=== PATIENT | male | born 1950 | race Caucasian/White ===

== ENCOUNTER 2022-05-19 14:30 | Outpatient (CLI) | payer MEDICARE, OTHER | END 2022-05-19 14:31 | disposition home or self-care (01) | LOC: LAB.S 14:30 | PROVIDERS: ATTEND Specialist | DX: C61 Malignant neoplasm of prostate (principal) | CPT/HCPCS: 36415; 84403 ==

== ENCOUNTER 2022-06-03 10:50 | Outpatient (CLI) | payer MEDICARE, OTHER ==
[2022-06-03 15:17] LABS: BASOPHILS # (AUTO) 0.1 10^3/uL (0.0-0.1); BASOPHILS % (AUTO) 0.8 %; EOSINOPHILS # (AUTO) 0.1 10^3/uL (0.0-0.7); EOSINOPHILS % (AUTO) 1.8 %; HCT - HEMATOCRIT 35.3 % (42.0-52.0); HGB - HEMOGLOBIN 10.8 g/dL (14.0-18.0); LYMPHOCYTES # (AUTO) 1.4 10^3/uL (1.5-3.5); LYMPHOCYTES % (AUTO) 22.7 %; MEAN CORPUSCULAR HEMOGLOBIN 28.6 pg (27.0-31.0); MEAN CORPUSCULAR HGB CONC 30.6 g/dL (32.0-36.0); MEAN CORPUSCULAR VOLUME 93.4 fL (80.0-94.0); MEAN PLATELET VOLUME 10.8 fL (7.4-11.4); MONOCYTES # (AUTO) 0.6 10^3/uL (0.0-1.0); NEUTROPHILS % (AUTO) 65.5 %; PLT - PLATELET COUNT 343 10^3/uL (130-450); RED BLOOD COUNT 3.78 10^6/uL (4.70-6.10); RED CELL DISTRIBUTION WIDTH 17.8 % (12.0-15.0); WHITE BLOOD COUNT 6.1 x10^3/uL (4.8-10.8)
[2022-06-03 15:27] LABS: ALBUMIN 3.8 g/dL (3.2-5.5); ALBUMIN/GLOBULIN RATIO 1.2 (1.0-2.2); BILIRUBIN,TOTAL 0.5 mg/dL (0.2-1.0); CALCIUM 9.6 mg/dL (8.5-10.3); CREATININE 1.2 mg/dL (0.6-1.2); TOTAL PROTEIN 6.9 g/dL (6.7-8.2)
== END 2022-06-03 10:51 | disposition home or self-care (01) ==
LOC: LAB.S 10:50
PROVIDERS: ATTEND Specialist
DX: C61 Malignant neoplasm of prostate (principal)
CPT/HCPCS: 36415; 80053; 84153; 84403; 85025

== ENCOUNTER 2022-07-15 08:00 | Outpatient (CLI) | payer MEDICARE, OTHER ==
[2022-07-15 13:47] LABS: BASOPHILS # (AUTO) 0.1 10^3/uL (0.0-0.1); BASOPHILS % (AUTO) 0.9 %; EOSINOPHILS # (AUTO) 0.1 10^3/uL (0.0-0.7); EOSINOPHILS % (AUTO) 2.4 %; HCT - HEMATOCRIT 36.2 % (42.0-52.0); MEAN CORPUSCULAR HEMOGLOBIN 27.1 pg (27.0-31.0); MEAN CORPUSCULAR HGB CONC 30.4 g/dL (32.0-36.0); MEAN CORPUSCULAR VOLUME 89.2 fL (80.0-94.0); MEAN PLATELET VOLUME 10.1 fL (7.4-11.4); MONOCYTES # (AUTO) 0.5 10^3/uL (0.0-1.0); MONOCYTES % (AUTO) 9.6 %; NEUTROPHILS # (AUTO) 3.6 10^3/uL (1.5-6.6); NEUTROPHILS % (AUTO) 67.9 %; PLT - PLATELET COUNT 282 10^3/uL (130-450); RED BLOOD COUNT 4.06 10^6/uL (4.70-6.10); RED CELL DISTRIBUTION WIDTH 16.4 % (12.0-15.0); WHITE BLOOD COUNT 5.3 x10^3/uL (4.8-10.8)
[2022-07-15 14:05] LABS: ALBUMIN 3.8 g/dL (3.2-5.5); ALBUMIN/GLOBULIN RATIO 1.1 (1.0-2.2); BILIRUBIN,TOTAL 0.5 mg/dL (0.2-1.0); CALCIUM 9.6 mg/dL (8.5-10.3); CREATININE 1.1 mg/dL (0.6-1.2); TOTAL PROTEIN 7.2 g/dL (6.7-8.2)
== END 2022-07-15 23:59 | disposition home or self-care (01) ==
LOC: LAB.R 08:00
PROVIDERS: ATTEND Specialist
DX: C61 Malignant neoplasm of prostate (principal)
CPT/HCPCS: 80053; 84153; 84403; 85025

== ENCOUNTER 2022-11-02 07:01 | Emergency (ER) | payer MEDICARE, OTHER ==
--- NOTE | 2022-11-02 07:12 | ED Physician Documentation ---
PD HPI CHEST PAIN - Stated complaint Stated Complaint: RIB PX - History obtained from History obtained from: Patient - History of Present Illness Timing - onset: How many months ago (2) Timing - onset during: Exertion (he states the onset of the pain there was while he was shoveling and he hit a rock with shovel tip, and caused a jarring of the chest, with pain right parasternal. This continued to some degree since. More hurting the past 2 weeks. No rash/redness. No creptitance/deformity to feel. Pain with movemen) Timing - details: Abrupt onset, Still present, Waxing and waning Quality: Aching, Sharp, Pain Location: Right chest (immediately parasternal at mid sternal level.) Radiation: No: Neck, Back Improved by: Rest Worsened by: Movement, Palpation. No: Inspiration Associated symptoms: No: Shortness of air, Nausea, Feeling faint / dizzy, Cough Similar symptoms before: Has not had sx before Review of Systems Constitutional: denies: Fever, Chills Nose: denies: Rhinorrhea / runny nose, Congestion Throat: denies: Sore throat Cardiac: reports: Chest pain / pressure. denies: Palpitations, Pedal edema, Calf pain Respiratory: denies: Cough Skin: denies: Rash, Lesions PD PAST MEDICAL HISTORY - Past Medical History Cardiovascular: Hypertension, High cholesterol Respiratory: Sleep apnea Neuro: None Endocrine/Autoimmune: None GI: None : Other (PROSTATE CANCER) HEENT: Chronic vision loss, Other Psych: Anxiety Musculoskeletal: Osteoarthritis, Other (HIP DJD) Derm: None - Past Surgical History Ortho: Other (LOWER LEFT LEG ORIF) - Present Medications Home Medications: Ambulatory Orders Medication Instructions Recorded Confirmed Ascorbic Acid [Vitamin C] 1,000 mg PO DAILY 12/10/21 07/06/22 Atorvastatin Calcium 40 mg PO DAILY 12/10/21 07/06/22 Cholecalciferol [Vitamin D3] 25 mcg PO DAILY 12/10/21 07/06/22 Multivitamin 1 each PO DAILY 12/10/21 07/06/22 [place]-3/Dha/Epa/Fish Oil [Fish Oil 1 each PO DAILY 12/10/21 07/06/22 1,000 mg Softgel] atenoloL [Tenormin] 50 mg PO DAILY 12/10/21 07/06/22 hydroCHLOROthiazide [Hydrodiuril] 25 mg PO DAILY 12/10/21 07/06/22 Lidocaine/Prilocain 2.5% Cream 5 applic TOP UD #1 gm 12/15/21 07/06/22 [Emla 2.5% Cream] Calcium Carbonate [Calcium] 03/16/22 Abiraterone Acetate 250 mg PO DAILY 05/15/22 07/06/22 Meloxicam [Mobic] 7.5 mg PO BID 10 Days #20 tablet 11/02/22 - Allergies Allergies/Adverse Reactions: Allergies Allergy/AdvReac Type Severity Reaction Status Date / Time No Known Drug Allergies Allergy Verified 11/02/22 07:23 - Social History Smoking Status: Former smoker (QUIT 2006; 1 + 1/2 PPD) PD ED PE NORMAL - Vitals Vital signs reviewed: Yes - General General: Alert and oriented X 3, No acute distress, Well developed/nourished - HEENT HEENT: Pharynx benign - Neck Neck: Supple, no meningeal sign, No adenopathy - Cardiac Cardiac: RRR, No murmur - Respiratory Respiratory: Clear bilaterally, Other (chest wall tender in right parasternal area at cartilage. No redness nor sores/rash. no crepitance. ) Results - Vitals Vitals: Vital Signs - 24 hr 11/02/22 11/02/22 07:20 10:16 Temperature 36.3 C L 36.4 C L Heart Rate 59 L 60 Respiratory 20 20 Rate Blood Pressure 132/105 H 132/89 H O2 Saturation 98 98 Oxygen O2 Source Room air - Rads (name of study) chest CT Relevant Findings:: Prelim report reviewed (no abnormalitiy in the area of the sternum to account for the pain. Multiple lung parenchymal nodules up to 3-3.5 mm size. ), See rad report PD Medical Decision Making - ED course Complexity details: reviewed results (CT chest shows normal in the area that is hurting. There are multiple small up to 3-3.5 mm nodules that could be inflammatory, infectious or early metastatic. ), considered differential (consider muscle strain pectoral vs costochonritis, but with his history of prostate CA, the concern for bone met or lung mass in area would be warranted and evaluated. ), d/w patient Reviewed Lab Results: the CT shows multiple small dense nodules that are very small. The patient is getting a PET scan for in a few weeks by his Oncologist, so will better define the lesions I presume. I convveyed the findings with rita nbd gave a copy of the CT report. for the chest wall pain, presume muscle tendonitis/strain versus more likely some focal costochondritis. To use NSAIDs regularly and add tylenol. He did not want any opioid type meds. Departure - Departure Disposition: 01 Home, Self Care Clinical Impression: Chest wall pain, Costochondritis, acute, Multiple lung nodules on CT Condition: Stable Record reviewed to determine appropriate education?: Yes Instructions: ED Chest Pain Costochondritis Prescriptions: Meloxicam [Mobic] 7.5 mg PO BID 10 Days #20 tablet Comments: Your CT scan does not show any abnormalities in the area that you are hurting. This means no obvious fractures, dislocation, bone lesions or masses in that spot. They do comment on several small nodules with largest approximately 3 to 3-1/2 mm (fairly small). These will be better evaluated with your PET scan coming up this month. The pain in the chest wall would seem to relate to some inflammation of the cartilage or muscle at that spot. We can try treating this with an anti- inflammatory regularly for the next 7 to 10 days. I wrote for some meloxicam which is a twice a day only anti-inflammatory. To that add Tylenol 500 to 650 mg 4 times daily to help with pain. Follow-up with your primary care if not improved well over the next several days and resolved by week. I sent your prescription to [facility] pharmacy. Discharge Date/Time: 11/02/22 10:16
[2022-11-02] MEDS ORDERED: ACETAMINOPHEN 325 MG TABLET PO STA (07:44)
[2022-11-02] MEDS ORDERED: NAPROXEN 250 MG TABLET PO STA (07:44)
--- NOTE | 2022-11-02 08:45 | CT Report ---
PROCEDURE: CHEST WO INDICATIONS: right parasternal pain, onset shoveling TECHNIQUE: Noncontrast 1mm axial images were acquired from the pulmonary apices to the posterior costophrenic an gles. Axial 5 mm soft tissue kernel reconstructions were performed as well as 8 mm axial MIP and cor onal and sagittal 5 mm reformations. For radiation dose reduction, the following was used: automate d exposure control, adjustment of mA and/or kV according to patient size. COMPARISON: None FINDINGS: Image quality: Excellent. Lungs and pleura: No consolidation. No pleural effusions. No pneumothorax. Moderate centrilobular an d paraseptal emphysema. Scattered solid pulmonary nodules, measuring no greater than 5 mm. Examples i nclude: -3 mm solid nodule, anterior right lower lobe (series 4, image 185). -3.5 mm solid nodule, right lung apex (series 4, image 59) Mediastinum: Heart size is enlarged. No pericardial effusion. No large vessel abnormality. No mediast inal adenopathy by size criteria. Annular calcification of mitral valve. Three-vessel coronary calci fications. Left chest wall port tip terminates in the high right atrium. Chest wall and lower neck: Thyroid is unremarkable. No axillary or supraclavicular adenopathy by size . Bilateral gynecomastia. Bones: A few punctate dense lesions within the spine, nonspecific. Upper Abdomen: Unremarkable. IMPRESSION: No acute findings explaining the patient's parasternal pain. 2 vessel coronary disease, moderate to severe for age. Scattered solid pulmonary nodules, which could be postinfectious/inflammatory or indicate metastatic disease. Reviewed by: Martin Dillon on 11/02/2022 8:44 AM PDT Approved by: Martin Dillon on 11/02/2022 8:44 AM PDT Station ID: [id number]
[2022-11-02 10:19] VITALS: BP 132/89
== END 2022-11-02 10:16 | disposition home or self-care (01) ==
LOC: ED 07:01
DX: M94.0 Chondrocostal junction syndrome [Tietze] (principal); R07.89 Other chest pain; R91.8 Other nonspecific abnormal finding of lung field; Z87.891 Personal history of nicotine dependence; I10 Essential (primary) hypertension; E78.00 Pure hypercholesterolemia, unspecified; Z79.899 Other long term (current) drug therapy
CPT/HCPCS: 71250; 99284; A9270

== ENCOUNTER 2022-11-26 12:57 | Outpatient (CLI) | payer MEDICARE, OTHER ==
[2022-11-26 13:05] LABS: BASOPHILS % (AUTO) 0.6 %; EOSINOPHILS # (AUTO) 0.1 10^3/uL (0.0-0.7); EOSINOPHILS % (AUTO) 1.6 %; HCT - HEMATOCRIT 32.2 % (42.0-52.0); HGB - HEMOGLOBIN 10.5 g/dL (14.0-18.0); LYMPHOCYTES # (AUTO) 0.8 10^3/uL (1.5-3.5); LYMPHOCYTES % (AUTO) 15.2 %; MEAN CORPUSCULAR HEMOGLOBIN 29.1 pg (27.0-31.0); MEAN CORPUSCULAR HGB CONC 32.6 g/dL (32.0-36.0); MEAN CORPUSCULAR VOLUME 89.2 fL (80.0-94.0); MEAN PLATELET VOLUME 9.6 fL (7.4-11.4); MONOCYTES # (AUTO) 0.6 10^3/uL (0.0-1.0); MONOCYTES % (AUTO) 10.9 %; NEUTROPHILS # (AUTO) 3.6 10^3/uL (1.5-6.6); NEUTROPHILS % (AUTO) 71.5 %; PLT - PLATELET COUNT 282 10^3/uL (130-450); RED BLOOD COUNT 3.61 10^6/uL (4.70-6.10); RED CELL DISTRIBUTION WIDTH 14.8 % (12.0-15.0); WHITE BLOOD COUNT 5.1 x10^3/uL (4.8-10.8)
[2022-11-26 13:22] LABS: ALBUMIN 4.4 g/dL (3.2-5.5); ALBUMIN/GLOBULIN RATIO 1.5 (1.0-2.2); BILIRUBIN,TOTAL 0.3 mg/dL (0.2-1.0); CALCIUM 10.1 mg/dL (8.5-10.3); CREATININE 1.3 mg/dL (0.6-1.3); TOTAL PROTEIN 7.3 g/dL (6.4-8.9)
== END 2022-11-26 12:58 | disposition home or self-care (01) ==
LOC: LAB 12:57
PROVIDERS: ATTEND Specialist
DX: C61 Malignant neoplasm of prostate (principal)
CPT/HCPCS: 36415; 80053; 84153; 84403; 85025

== ENCOUNTER 2023-02-08 12:29 | Outpatient (CLI) | payer MEDICARE, OTHER | END 2023-02-08 23:59 | disposition short-term general hospital (02) | LOC: EMS 12:29 | DX: R20.0 Anesthesia of skin (principal); R53.1 Weakness; Z74.09 Other reduced mobility | CPT/HCPCS: A0425; A0427 ==

== ENCOUNTER 2023-02-10 12:15 | Inpatient (IN) | payer MEDICARE, OTHER ==
[2023-02-10] MEDS ORDERED: ATROPINE 0.4 MG/ML VIAL IVP PRN (13:13)
[2023-02-10] MEDS ORDERED: ACETAMINOPHEN 325 MG TABLET PO PRN (13:13)
[2023-02-10] MEDS ORDERED: CARBOXYMETHYLCELLULOSE OPHTH DROPS EACHEYE PRN (13:13)
[2023-02-10] MEDS ORDERED: LORazepam 2 MG/ML VIAL IVP PRN (13:13)
[2023-02-10] MEDS ORDERED: PETROLATUM WHITE 5 GM PACKET TOP PRN (13:13)
[2023-02-10] MEDS: MORPHINE 2 MG/ML CARPUJECT IVP PRN ×2 (17:34→20:28)
[2023-02-10] MEDS: DEXAMETHASONE 4 MG/ML VIAL IVP SCH ×2 (17:34→23:52)
--- NOTE | 2023-02-10 19:38 | HISTORY & PHYSICAL EXAMINATION ---
History and Physical - History and Physical 73 yo male w/metastatic prostate cancer, dx'd in 2016. He was found to have bone mets in 11/22 (Rib, Rt T8, femur). He underwent XRT. He admitted to hospice on 01/27/23 as he did not want to pursue further systemic therapy. He notes he has been doing very well overall despite the extent of his disease process. He notes his pain has been fairly well controlled. He has been ambulatory and was out in his shop as recently as 3 days ago.. He'd been having some pain in his legs, but it was manageable. He also had been having some back pain, but it was improved w/current interventions (methadone, dexamethasone). He woke up around 2 am on 02/08/23 and took a shower. He notes he was okay at that time. However, later in the morning he noted weakness in the legs as well as onset of numbness. He denied any falls. He noted that he felt "numb" from just below the nipple line down. He could identify pressure but not sensation. He stated he could move his Lt leg, but not his right. He had not urinated since 0200 and did not feel any urge to urinate. On exam, he had a T 5/6 dermatome level acute paralysis. He was hyperreflexic. RN placed a chavira w/1400 cc urine output. Pt elected to revoke hospice and pursue further diagnostics (and possible intervention). He transferred to [facility] for further evaluation. He was admitted, placed on IV steroids and ultimately underwent MRI on 02/09/23 which revealed "tumor wrapped around the spinal cord" at C5 and it was felt there was no intervention available for him. After admission to the hospital, he did develop ascending paresis which impacted his RUE and has caused some difficulty w/deep breathing. Today, the Palliative Care team contacted Hospice re: readmission and GIP level of care for mgmt of his IV pain medication needs. The PC MD reported to me that he was needing frequent IV morphine for comfort. Currently, pt c/o neuropathic pain primarily impacting his RUE. He also notes if he moves his head too far, he develops neuropathic sxs extending down Bilateral medial thighs. He continues to note some difficulty w/taking a deep breath and notes that attempting to take a deep breath increases the neuropathic pain in his RUE. He has not had a BM in 3 days. PMH: Metastatic prostate cancer BPH HTN CKD3 NITISH osteopenia depression/anxiety former smoker Soc Hx: Former smoker. Former alcohol use (6 pack/day). Lives in [place], [place] w/ and son. Exam: T 36.3, HR 44 RR 16 BP 104/33 O2 sat 99% RA; pain rated 10/10 on admission Gen- very pleasant elderly male, Alert and oriented x 3, appears uncomfortable when moving his RUE HEENT - NC, face symmetric, PERRLA, EOMI, sclera anicteric, conjunctiva pale but clear, OP clear, fair dentition Chest -Resp excursions symmetric, CTAB CV - bradycardic w/RR, no M/R/G Abd-soft, NT/ND, BTx4, no obvious masses/HSM Extr-warm, no C/C/E, no sensation to BLEs Skin-warm, dry, no rash Neuro- absent sensation/movement to BLEs, able to move LUE w/o difficulty, RUE w/decreased function and sensation Assessment: 1. Acute spinal cord compression d/t C5 lesion 2. Metastatic prostate cancer 3. Bradycardia 4. Urinary retention 5. Constipation Pt w/acute onset of paralysis on 02/08/23, found to be d/t spinal cord compression from metastasis to C5. He is having severe neuropathic pain, some respiratory symptoms and autonomic instability w/bradycardia and hypotension (reported at Prov). Additionally, he has urinary retention and constipation consistent w/paralysis. Will admit to [facility] level of care. Place on : dexamethasone 4 mg IV q6 IV morphine PRN Titrate gabapentin Add baclofen and d/c flexeril Add daily suppository - may need digital stim if ineffective Continue methadone Pt is appropriate for GIP level of care for monitoring of sxs related to cord compression, mgmt of 10/10 pain, and need for both IV steroids and IV morphine. These interventions could not be accomplished at a lower level of care. Code status: DNR/DNI
[2023-02-10] MEDS: GABAPENTIN 300 MG CAPSULE PO SCH ×2 (20:28→23:53)
[2023-02-10] MEDS: MIRTAZAPINE 15 MG TABLET PO SCH (22:27)
[2023-02-10] MEDS: METHADONE 5 MG TABLET PO SCH (22:27)
[2023-02-10] MEDS: BACLOFEN 10 MG TABLET PO SCH (22:28)
[2023-02-11] MEDS: BACLOFEN 10 MG TABLET PO SCH ×3 (06:10→22:13)
[2023-02-11] MEDS: PANTOPRAZOLE 40 MG TABLET PO SCH (06:10)
[2023-02-11] MEDS: GABAPENTIN 300 MG CAPSULE PO SCH ×3 (06:12→22:14)
[2023-02-11] MEDS: METHADONE 5 MG TABLET PO SCH ×3 (06:12→22:14)
[2023-02-11] MEDS: DEXAMETHASONE 4 MG/ML VIAL IVP SCH ×3 (06:12→17:12)
[2023-02-11] MEDS: MORPHINE 2 MG/ML CARPUJECT IVP PRN ×10 (06:20→22:12)
[2023-02-11] MEDS: polyethylene glycoL 3350 17 GM PACKET PO SCH (08:22)
[2023-02-11] MEDS: MIN OIL/DIMETHICON/COCONUT OIL 92 GM TUBE TOP PRN ×3 (08:23→22:12)
[2023-02-11] MEDS: BISACODYL 10 MG SUPP PR SCH (08:23)
--- NOTE | 2023-02-11 11:39 | PROVIDER PROGRESS NOTE ---
Progress Note 73 yo male w/metastatic prostate cancer w/C5 spinal cord compression causing acute ascending paralysis. S: Pt reports he slept for about 4 hours overnight. His pain increased and woke him at 6am. He notes his pain was 8/10 this am prior to receiving IV meds. Now it is down to 4/10 w/intervention. He received a suppository this am, but has not had a BM yet. Some persistent respiratory difficulty when trying to take a full breath. O: Gen-A&Ox3, pleasant middle aged male HEENT - NC, face symmetric Chest - CTAB CV - bradycardic w/RR, no M/R/G Abd-soft, NT, ND, BT hypoactive Extr- warm, No C/C/E Neuro - decreased dexterity w/RUE but still moving it fairly well, no involvement to LUE, flaccid paralysis to BLEs A: 1. Acute spinal cord compression d/t C5 lesion 2. Metastatic prostate cancer 3. Bradycardia 4. Urinary retention 5. Constipation P: Continue IV morphine PRN, scheduled IV dexamethasone, baclofen, methadone, gabapentin both scheduled and PRN He appears slightly more bradycardic this am than yesterday. Will monitor. Continue chavira catheter. RNCM checked rectal vault while we visited and noted soft stool starting to come out of the rectum. Hospice ASSOCIATE MANAGER AFFILIATE MARKETING working on post-GIP resources as well. Discussed a visit from Director Of Channel Marketing-pt declined. Discussed likely course of disease progression to include respiratory failure and progressive paralysis of the BUEs. Explained that we will titrate medications to control dyspnea, anxiety, pain. Continue GIP level of care for management of severe pain and need for both scheduled and PRN IV medications.
[2023-02-11] MEDS: LORazepam 2 MG/ML VIAL IVP SCH ×2 (16:00→22:12)
[2023-02-11] MEDS: GABAPENTIN 300 MG CAPSULE PO PRN ×2 (16:01→20:03)
[2023-02-11] MEDS: MIRTAZAPINE 15 MG TABLET PO SCH (22:14)
[2023-02-12] MEDS: DEXAMETHASONE 4 MG/ML VIAL IVP SCH ×5 (06:27→23:55)
[2023-02-12] MEDS: BACLOFEN 10 MG TABLET PO SCH ×3 (06:36→21:10)
[2023-02-12] MEDS: LORazepam 2 MG/ML VIAL IVP SCH ×3 (06:36→21:12)
[2023-02-12] MEDS: PANTOPRAZOLE 40 MG TABLET PO SCH (06:37)
[2023-02-12] MEDS: GABAPENTIN 300 MG CAPSULE PO SCH ×3 (06:37→21:12)
[2023-02-12] MEDS: METHADONE 5 MG TABLET PO SCH ×3 (06:37→21:10)
[2023-02-12] MEDS: MORPHINE 2 MG/ML CARPUJECT IVP PRN ×3 (07:33→11:19)
[2023-02-12] MEDS: polyethylene glycoL 3350 17 GM PACKET PO SCH (08:11)
[2023-02-12] MEDS: BISACODYL 10 MG SUPP PR SCH (08:31)
[2023-02-12] MEDS: GABAPENTIN 300 MG CAPSULE PO PRN (17:12)
--- NOTE | 2023-02-12 18:42 | PROVIDER PROGRESS NOTE ---
Progress Note 73 yo male w/metastatic prostate cancer w/C5 spinal cord compression causing acute ascending paralysis. S: Pt reports he slept for about 4 hours again overnight, but feels his sleep quality was improved. He feels he is better able to take a deep breath w/o pain in his arm, but has required frequent IV pain medication (received 20 mg IV in 24 hours). He was successfully able to have multiple BMs yesterday. Earlier today, he notes he choked on food. He had pumpkin bread that his dtr brought. He notes it got stuck and he couldn't cough it out. RN came and he required deep suctioning to remove the food bolus. He notes his cough has become extremely weak. He notes his RUE is more "clumsy" than it was yesterday. Dtr notes that he has very little dexterity in his right hand. He denies any decrease in function in his LUE, but notes "a spot" that is starting to feel abnormal around his elbow, which is where his sxs started on his RUE. Pain was rated 7-8/10 for most of the past 24 hrs. O: Gen-A&Ox3, pleasant middle aged male HEENT - NC, face symmetric Chest - CTAB CV - bradycardic w/RR, no M/R/G Abd-soft, NT, ND, BT hypoactive Extr- warm, No C/C/E Neuro - decreased overall movement and dexterity to RUE, he is using his LUE to move the RUE during my visit, flaccid paralysis to BLEs A: 1. Acute spinal cord compression d/t C5 lesion 2. Metastatic prostate cancer 3. Bradycardia 4. NEW dysphagia 5. Urinary retention 6. Constipation - resolved P: Continue IV morphine PRN, scheduled IV dexamethasone, baclofen, methadone, gabapentin both scheduled and PRN. Will increase methadone by 5 mg/day to work on improving overall pain control. He remains bradycardic, about the same as yesterday. He has developed new dysphagia today, requiring urgent RN suctioning. Continue chavira catheter for urinary retention. Constipation resolved w/use of dulcolax suppository. Hospice TOPOGRAPHICAL DRAFTER working on post-GIP resources. Pt aware of likelycourse of disease progression to include respiratory failure and progressive paralysis of the BUEs. Continue GIP level of care for management of uncontrolled pain and need for both scheduled and PRN IV medications, as well as new onset dysphagia w/inability to clear his obstruction.
[2023-02-12] MEDS: MIRTAZAPINE 15 MG TABLET PO SCH (21:12)
[2023-02-13] MEDS: BACLOFEN 10 MG TABLET PO SCH ×3 (06:07→21:09)
[2023-02-13] MEDS: DEXAMETHASONE 4 MG/ML VIAL IVP SCH ×4 (06:08→23:35)
[2023-02-13] MEDS: LORazepam 2 MG/ML VIAL IVP SCH ×3 (06:08→21:10)
[2023-02-13] MEDS: PANTOPRAZOLE 40 MG TABLET PO SCH (06:08)
[2023-02-13] MEDS: GABAPENTIN 300 MG CAPSULE PO SCH ×3 (06:09→21:09)
[2023-02-13] MEDS: MORPHINE 2 MG/ML CARPUJECT IVP PRN ×2 (07:47→11:01)
[2023-02-13] MEDS: polyethylene glycoL 3350 17 GM PACKET PO SCH (09:10)
[2023-02-13] MEDS: METHADONE 5 MG TABLET PO SCH ×3 (09:10→21:09)
[2023-02-13] MEDS: BISACODYL 10 MG SUPP PR SCH (09:11)
[2023-02-13] MEDS: GABAPENTIN 300 MG CAPSULE PO PRN ×2 (11:00→16:12)
[2023-02-13] MEDS: MIRTAZAPINE 15 MG TABLET PO SCH (21:09)
--- NOTE | 2023-02-13 21:48 | PROVIDER PROGRESS NOTE ---
Progress Note 73 yo male w/metastatic prostate cancer w/C5 spinal cord compression causing acute ascending paralysis. S: Over the past 24 hours, pt notes he has continued to have RUE neuropathic pain. He notes that he feels he has had some benefit from the increased dose of the methadone as well as the extra doses of gabapentin. He continues to struggle to sleep. No aspiration event since yesterday. He notes he did have to use the [place] 2 times yesterday. Son in law notes that at times the pt's speech has been slurred. He notes that when he first arrived in the pt's room, he seemed a bit out of it and he was worried the pt had a CVA. O: Gen-A&Ox3, pleasant middle aged male HEENT - NC, face symmetric Chest - CTAB CV - bradycardic w/RR, no M/R/G Abd-soft, NT, ND, BT hypoactive Extr- warm, No C/C/E Neuro - poor control of the RUE, he is using his LUE to move the RUE during my visit, flaccid paralysis to BLEs A: 1. Acute spinal cord compression d/t C5 lesion 2. Metastatic prostate cancer 3. Bradycardia 4. Dysphagia 5. Urinary retention 6. Constipation - resolved P: Continue IV morphine PRN, scheduled IV dexamethasone, baclofen, methadone, gabapentin both scheduled and PRN. Methadone increased yesterday to 7.5/5/7.5 w/some improvement. He remains bradycardic, about the same as yesterday. No further dysphagia since yesterday but new cognitive changes noted today per family. Continue chavira catheter for urinary retention. Constipation resolved w/use of dulcolax suppository. Hospice DANCE PROFESSOR working on post-GIP resources. Pt aware of likely course of disease progression to include respiratory failure and progressive paralysis of the BUEs. Continue GIP level of care for management of uncontrolled pain and need for both scheduled and PRN IV medications. Will also continue to monitor for new neuro changes given subtle changes in his speech noted today by family.
[2023-02-14] MEDS: GABAPENTIN 300 MG CAPSULE PO SCH ×3 (05:57→21:15)
[2023-02-14] MEDS: PANTOPRAZOLE 40 MG TABLET PO SCH (05:57)
[2023-02-14] MEDS: BACLOFEN 10 MG TABLET PO SCH ×3 (05:57→21:15)
[2023-02-14] MEDS: DEXAMETHASONE 4 MG/ML VIAL IVP SCH ×3 (05:58→19:36)
[2023-02-14] MEDS: LORazepam 2 MG/ML VIAL IVP SCH ×3 (06:04→21:16)
[2023-02-14] MEDS: polyethylene glycoL 3350 17 GM PACKET PO SCH (08:53)
[2023-02-14] MEDS: BISACODYL 10 MG SUPP PR SCH (08:53)
[2023-02-14] MEDS: MORPHINE 2 MG/ML CARPUJECT IVP PRN ×3 (08:53→12:22)
[2023-02-14] MEDS: METHADONE 5 MG TABLET PO SCH ×3 (08:54→21:16)
[2023-02-14] MEDS: GABAPENTIN 300 MG CAPSULE PO PRN (11:04)
--- NOTE | 2023-02-14 15:21 | PROVIDER PROGRESS NOTE ---
Progress Note 73 yo male w/metastatic prostate cancer w/C5 spinal cord compression causing acute ascending paralysis. S: Over the past 24 hours, pt notes he has continued to have RUE neuropathic pain and typically rates it as 6-8/10. So far today, he has needed 3 PRN IV doses of morphine and 1 of PRN IV lorazepam. He is using an ice pack for neck pain. He has routinely needed both doses of PRN gabapentin as well. No further aspiration. He does seem a bit more confused today, having a hard time tracking conversation. He believed the bilingual patient support caseworker has 4-5 children (he has known since admission that she doesn't have any children). He also made a couple of strange conversation transitions that were difficult to follow. He reports poor sleep. O: Gen-A&Ox2-3, pleasant middle aged male HEENT - NC, face symmetric Chest - CTAB CV - mildly bradycardic w/RR, no M/R/G Abd-soft, NT, ND, BT hypoactive Extr- warm, No C/C/E Neuro - poor control of the RUE,with his arm frequently flopping clumsily when he moves it, flaccid paralysis to BLEs A: 1. Acute spinal cord compression d/t C5 lesion 2. Metastatic prostate cancer 3. Bradycardia 4. Dysphagia - no recurrence 5. Urinary retention 6. Confusion P: Continue IV morphine PRN, scheduled IV dexamethasone, baclofen, methadone, gabapentin both scheduled and PRN. Will increase gabapentin to 600/300/600. Methadone increased 02/12/23 to 7.5/5/7.5. Bradycardia is mild at this point. Asymptomatic. No further dysphagia since 02/12. Continue chavira catheter for urinary retention. He is demonstrating some confusion today. Will monitor. Hospice WING MAILER MACHINE OPERATOR working on post-GIP resources. Pt aware of likely course of disease progression to include respiratory failure and progressive paralysis of the BUEs. Continue GIP level of care for management of uncontrolled pain and need for both scheduled and PRN IV medications.
[2023-02-14] MEDS: MIRTAZAPINE 15 MG TABLET PO SCH (21:14)
[2023-02-15] MEDS: DEXAMETHASONE 4 MG/ML VIAL IVP SCH ×4 (00:40→22:24)
[2023-02-15] MEDS: MORPHINE 2 MG/ML CARPUJECT IVP PRN ×2 (00:50→09:53)
[2023-02-15] MEDS: BACLOFEN 10 MG TABLET PO SCH ×3 (06:45→22:12)
[2023-02-15] MEDS: PANTOPRAZOLE 40 MG TABLET PO SCH (06:46)
[2023-02-15] MEDS: LORazepam 2 MG/ML VIAL IVP SCH (06:47)
[2023-02-15] MEDS: BISACODYL 10 MG SUPP PR SCH (09:52)
[2023-02-15] MEDS: GABAPENTIN 300 MG CAPSULE PO SCH ×3 (09:52→20:51)
[2023-02-15] MEDS: polyethylene glycoL 3350 17 GM PACKET PO SCH (09:52)
[2023-02-15] MEDS: METHADONE 5 MG TABLET PO SCH ×3 (10:40→22:12)
--- NOTE | 2023-02-15 12:15 | PROVIDER PROGRESS NOTE ---
Progress Note 73 yo male w/metastatic prostate cancer w/C5 spinal cord compression causing acute ascending paralysis. S: Over the past 24 hours, pt notes he has continued to have RUE neuropathic pain which has been as high as 02/09 this am. He has needed 10 mg of IV morphine since yesterday am (only 2 doses since my visit yesterday afternoon). No PRN gabapentin since increasing the scheduled dose yesterday. He continues to have some confusion - mentioned graffiti on the brick wall outside of his hospital room (which isn't there) and was observed shaking pepper onto his pineapple on his lunch tray. He slept well last night. No family at bedside. O: Gen-A&Ox2-3, pleasant middle aged male HEENT - NC, face symmetric Chest - CTAB CV - mildly bradycardic w/RR, no M/R/G Abd-soft, NT, ND, BT hypoactive Extr- warm, No C/C/E Neuro - poor control of the RUE,with his arm frequently flopping clumsily when he moves it, flaccid paralysis to BLEs A: 1. Acute spinal cord compression d/t C5 lesion 2. Metastatic prostate cancer 3. Bradycardia 4. Dysphagia - no recurrence 5. Urinary retention 6. Confusion P: Continue IV morphine PRN. Will increase methadone to 7.5 mg TID today. Will reduce IV dex from 4 mg q6 to 4 mg q8. Plan to transition to po dex tomorrow. Will d/c IV scheduled lorazepam and give it po. Bradycardia remains mild and asymptomatic. No dysphagia since 02/12. Continue chavira catheter for urinary retention. He continues to have confusion, which is likely multifactorial from medications and disease process. Hospice CONTINUITY READER working on disposition. Pt states he would like to go home, rather than to an off-island SNF. Pt aware of likely course of disease progression to include respiratory failure and progressive paralysis of the BUEs. Will transition to C LOC as pt has only needed 2 doses of PRN IV morphine since my visit yesterday and sxs appear to be well managed.
[2023-02-15] MEDS ORDERED: LORazepam 0.5 MG TABLET PO PRN (13:50)
[2023-02-15] MEDS ORDERED: MORPHINE SOL 10 MG/0.5 ML ORAL SYRINGE PO PRN (13:51)
[2023-02-15] MEDS ORDERED: MORPHINE 2 MG/ML CARPUJECT IVP PRN (13:52)
[2023-02-15] MEDS: LORazepam 0.5 MG TABLET PO SCH ×2 (14:09→22:11)
[2023-02-15] MEDS: MIRTAZAPINE 15 MG TABLET PO SCH (20:52)
[2023-02-15] MEDS: MIN OIL/DIMETHICON/COCONUT OIL 92 GM TUBE TOP PRN (22:25)
[2023-02-16] MEDS: BACLOFEN 10 MG TABLET PO SCH ×2 (06:43→14:22)
[2023-02-16] MEDS: LORazepam 0.5 MG TABLET PO SCH ×2 (06:44→14:20)
[2023-02-16] MEDS: METHADONE 5 MG TABLET PO SCH ×2 (06:48→14:21)
[2023-02-16] MEDS: PANTOPRAZOLE 40 MG TABLET PO SCH (06:49)
[2023-02-16] MEDS: dexAMETHasone 4 MG TABLET PO SCH ×2 (06:50→14:21)
[2023-02-16 07:58] VITALS: BP 126/67; O2SAT 96
[2023-02-16] MEDS: polyethylene glycoL 3350 17 GM PACKET PO SCH (08:42)
[2023-02-16] MEDS: BISACODYL 10 MG SUPP PR SCH (08:42)
[2023-02-16] MEDS: GABAPENTIN 300 MG CAPSULE PO SCH ×2 (08:42→14:21)
--- NOTE | 2023-02-16 11:16 | PROVIDER PROGRESS NOTE ---
Progress Note 73 yo male w/metastatic prostate cancer w/C5 spinal cord compression causing acute ascending paralysis. S: Pt is in good spirits today. He received IV morphine this am prior to a bedbath. He notes he slept about 4 hours overnight. He does c/o increased neuropathic pain in his LUE (was just at the elbow, now down the forearm). Breathing well controlled. Dtr notes that he was somewhat confused this am, stating she had polka dots on her face. O: Gen-A&Ox2-3, pleasant middle aged male HEENT - NC, face symmetric Chest - CTAB CV - RRR, no M/R/G Abd-soft, NT, ND, BT hypoactive Extr- warm, No C/C/E Neuro - poor control of the RUE,with his arm frequently flopping clumsily when he moves it, flaccid paralysis to BLEs A: 1. Acute spinal cord compression d/t C5 lesion 2. Metastatic prostate cancer 3. Bradycardia 4. Dysphagia - no recurrence 5. Urinary retention 6. Confusion P: Tolerating med changes from yesterday. continues methadone 7.5 mg po TID, dex po 4 mg TID, baclofen 5 mg TID, lorazepam 0.5 mg TID. Had one po dose of PRN morphine yesterday and one IV dose today. Continue chavira catheter. Pt had a BM this am. Pt has been accepted to [facility] today for assisted care.
--- NOTE | 2023-02-16 11:18 | Discharge Plan ---
"Discharge Plan for SNF / [facility] - Discharge Plan And Transition Orders Problem Reviewed?: Yes Disposition: 03 SNF DC/Xfer Condition: Fair Allergies and Adverse Reactions: Allergies Allergy/AdvReac Type Severity Reaction Status Date / Time No Known Drug Allergies Allergy Verified 11/02/22 07:23 - SNF / [facility] Transition Orders Admit to (Facility): [facility] Under the care of (Name): Dr. [facility] Discharge Diagnosis: 1. 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 Weight on admission and: Weekly Other Notification Orders: Call PCP immediately if patient develops dyspnea, chest pain/tightness or edema. House Bowel Program: Yes Additional Bowel Program Orders: If no BM after 2 days, nurse may give M.O.M. 30ml PO PRN and/or ducolax Supp 1 TN and/or BECKY 250mg P.O., and/or senna 1-2 tabs PO. On day 3 nurse may give repeat above order until residents constipation is resolved. Annual Influenza Vaccine (between Jan 01 and July 31): Yes Two-step PPD per [facility] [id number] or approved exception documents: Yes Treatments & Other Orders: Reposition q3 hours Oxygen Orders: N/A Medication Orders: PLEASE REFER TO THE DISCHARGE MEDICATION LIST. - Diet Texture: Regular Liquids: Thin Supplements: N/A - Therapies | Activity Activity: Bed bound d/t paralysis"
--- NOTE | 2023-02-16 11:19 | DISCHARGE SUMMARY ---
Discharge Summary Admit Date: 02/10/23 Discharge Date: 02/16/23 Discharging Provider: Skyler Code Status: Do Not Attempt Resuscitation Condition at Discharge: Fair Discharge Disposition: 03 SNF DC/Xfer Discharge [facility]: [facility] - DIAGNOSES Admission Diagnoses: 1. Acute spinal cord compression d/t C5 lesion 2. Metastatic prostate cancer 3. Bradycardia 4. Urinary retention 5. Constipation Discharge Diagnoses with Status of Each Condition: 1. Acute spinal cord compression d/t C5 lesion,unchanged 2. Metastatic prostate cancer, unchanged 3. Bradycardia, improved 4. Urinary retention, stable, s/p chavira catheter 5. Constipation, improved 6. Dysphagia - single episode, resolved 7. Confusion-mild, persistent - HPI History of Present Illness: 73 yo male w/metastatic prostate cancer, dx'd in 2016. He was found to have bone mets in 11/22 (Rib, Rt T8, femur). He underwent XRT. He admitted to hospice on 01/27/23 as he did not want to pursue further systemic therapy. He notes he has been doing very well overall despite the extent of his disease process. He notes his pain has been fairly well controlled. He has been ambulatory and was out in his shop as recently as 3 days ago.. He'd been having some pain in his legs, but it was manageable. He also had been having some back pain, but it was improved w/current interventions (methadone, dexamethasone). He woke up around 2 am on 02/08/23 and took a shower. He notes he was okay at that time. However, later in the morning he noted weakness in the legs as well as onset of numbness. He denied any falls. He noted that he felt "numb" from just below the nipple line down. He could identify pressure but not sensation. He stated he could move his Lt leg, but not his right. He had not urinated since 0200 and did not feel any urge to urinate. On exam, he had a T 5/6 dermatome level acute paralysis. He was hyperreflexic. RN placed a chavira w/1400 cc urine output. Pt elected to revoke hospice and pursue further diagnostics (and possible intervention). He transferred to [facility] for further evaluation. He was admitted, placed on IV steroids and ultimately underwent MRI on 02/09/23 which revealed "tumor wrapped around the spinal cord" at C5 and it was felt there was no intervention available for him. After admission to the hospital, he did develop ascending paresis which impacted his RUE and has caused some difficulty w/deep breathing. Today, the Palliative Care team contacted [facility] re: readmission and [facility] level of care for mgmt of his IV pain medication needs. The PC MD reported to me that he was needing frequent IV morphine for comfort. Currently, pt c/o neuropathic pain primarily impacting his RUE. He also notes if he moves his head too far, he develops neuropathic sxs extending down Bilateral medial thighs. He continues to note some difficulty w/taking a deep breath and notes that attempting to take a deep breath increases the neuropathic pain in his RUE. He has not had a BM in 3 days. - HOSPITAL COURSE Hospital Course: Pt was admitted to hospice [facility] level of care for management of pain and acute ascending paralysis d/t tumor expansion at C5 and throughout the spinal column. He was placed on IV steroids, IV morphine, IV lorazepam as well as po methadone, gabapentin, baclofen and bowel regimen. Over the course of his hospital stay, his pain medications were titrated up w/good effect. He was transitioned to [facility] level of care on 02/15/23. He was accepted to [facility] for half-way care on 02/16/23. Pt is discharged in fair condition. His prognosis is likely at most 2-3 weeks. - ALLERGIES Allergies/Adverse Reactions: Allergies Allergy/AdvReac Type Severity Reaction Status Date / Time No Known Drug Allergies Allergy Verified 11/02/22 07:23 - MEDICATIONS Home Medications: Ambulatory Orders Medication Instructions Recorded Confirmed Senna [Senokot] 8.6 mg PO BID 02/11/23 02/11/23 Acetaminophen [Tylenol] 650 mg PO Q4HR PRN tab 02/16/23 Baclofen [Lioresal] 5 mg PO TID tab 02/16/23 Gabapentin [Neurontin] 300 mg PO 1400 cap 02/16/23 Gabapentin [Neurontin] 600 mg PO BID cap 02/16/23 LORazepam [Ativan] 0.5 mg PO TID tab 02/16/23 Methadone [Methadone Hcl] 7.5 mg PO TID tab 02/16/23 Min Oil/Dimeth/Coconut Oil Crm 1 applic TOP PRN PRN each 02/16/23 [Cavilon] Mirtazapine [Remeron] 15 mg PO QPM tab 02/16/23 Morphine Oral Soln [Roxanol] 5 mg PO Q1H PRN ml 02/16/23 Pantoprazole [Protonix] 40 mg PO QDAC tab 02/16/23 dexAMETHasone [Decadron] 4 mg PO TID tab 02/16/23 polyethylene glycoL 3350 [Miralax] 17 gm PO DAILY packet 02/16/23 - PHYSICAL EXAM AT DISCHARGE Physical Exam Other/Comments: See progress note from today - TIME SPENT Time Spent in Discharge (Minutes): 50
== END 2023-02-16 14:45 | DRG 948 ==
LOC: MS2 16:10
PROVIDERS: ADMIT Family Medicine; ATTEND Family Medicine
DX: G89.3 Neoplasm related pain (acute) (chronic) (principal); C79.51 Secondary malignant neoplasm of bone; G95.29 Other cord compression; C61 Malignant neoplasm of prostate; R33.8 Other retention of urine; N40.1 Benign prostatic hyperplasia with lower urinary tract symptoms; R00.1 Bradycardia, unspecified; R13.10 Dysphagia, unspecified; R41.0 Disorientation, unspecified; G83.89 Other specified paralytic syndromes; I12.9 Hypertensive chronic kidney disease with stage 1 through stage 4 chronic kidney disease, or unspecified chronic kidney disease; N18.30 Chronic kidney disease, stage 3 unspecified; G47.33 Obstructive sleep apnea (adult) (pediatric); M85.88 Other specified disorders of bone density and structure, other site; F32.A Depression, unspecified; F41.9 Anxiety disorder, unspecified; Z87.891 Personal history of nicotine dependence; I95.9 Hypotension, unspecified; K59.09 Other constipation
CPT/HCPCS: A6250; A9270; J2060; J8540

== ENCOUNTER 2023-02-16 14:47 | Outpatient (CLI) | payer OTHER | END 2023-02-16 14:48 | LOC: EMS 14:47 | PROVIDERS: ATTEND Family Medicine | DX: Z51.5 Encounter for palliative care (principal); C61 Malignant neoplasm of prostate; C79.51 Secondary malignant neoplasm of bone; R41.0 Disorientation, unspecified; Z74.01 Bed confinement status | CPT/HCPCS: A0425; A0428 ==